=== PATIENT | male | born 1945 | race African-American/Black ===

== ENCOUNTER 2016-07-06 18:40 | Emergency (ER) | payer OTHER ==
[~2016-07-06 18:40] MED LIST: B/P MED; MEDROL DOSEPAK4 MG DOB; VICODIN 5/1 TAB 5/50 PO
== END 2016-07-06 20:00 | disposition home or self-care (01) ==
LOC: CED 18:40
DX: T16.2XXA Foreign body in left ear, initial encounter (principal); H66.92 Otitis media, unspecified, left ear; H72.2X2 Other marginal perforations of tympanic membrane, left ear; I10 Essential (primary) hypertension; E78.5 Hyperlipidemia, unspecified; X58.XXXA Exposure to other specified factors, initial encounter
CPT/HCPCS: 69200; 99283